=== PATIENT | male | born 1990 | race Caucasian/White ===

== ENCOUNTER 2023-05-12 08:06 | Emergency (ER) | payer OTHER ==
[~2023-05-12] VITALS: Ht 172.7 cm; Wt 99.8 kg
[2023-05-12 08:06] VITALS: BP_SYST 159; PULSE 96; RESP 16; TEMP 97.2; O2SAT 97
[2023-05-12] MEDS ORDERED: LIDOCAINE 1% 10 MG/ML, 20 ML MDV INJ ONE (08:30)
[2023-05-12] MEDS ORDERED: DIPHTH,PERTUSS(ACELL),TET VAC 0.5 ML VIAL (Tdap) I.M. ONE (08:30)
[2023-05-12] MEDS ORDERED: BACITRACIN 1 GM OINT TP ONE (08:53)
[2023-05-12 09:21] VITALS: BP_SYST 159; PULSE 96; RESP 16; TEMP 97.2; O2SAT 97
== END 2023-05-12 09:15 | disposition home or self-care (01) ==
LOC: SED 08:06
DX: S61.214A Laceration without foreign body of right ring finger without damage to nail, initial encounter (principal); Z79.899 Other long term (current) drug therapy; W26.0XXA Contact with knife, initial encounter; Y93.89 Activity, other specified; Y92.89 Other specified places as the place of occurrence of the external cause; Y99.8 Other external cause status
CPT/HCPCS: 90715; 99283; J2001